=== PATIENT | male | born 1995 | race Hispanic/Latino ===

== ENCOUNTER 2018-09-14 22:45 | Emergency (ER) | payer MEDICAID, OTHER ==
[2018-09-14] MEDS ORDERED: BUPIVACAINE/PF 0.5% 30ML VIAL ONE (23:02)
[2018-09-14] MEDS ORDERED: ONDANSETRON HCL MDV 20ML 2 MG/ML VIAL ONE (23:10)
[2018-09-14] MEDS ORDERED: CEFAZOLIN SODIUM 1 GM VIAL ONE (23:11)
[2018-09-14 23:30] LABS: BASOPHILS % (AUTO) 0.5 % (0.0-5.0); EOSINOPHILS % (AUTO) 1.3 % (0.0-8.0); HEMATOCRIT 44.1 % (42-54); LYMPHOCYTES % (AUTO) 38.3 % (21.0-51.0); MEAN CORPUSCULAR HEMOGLOBIN 29.8 pg (27.0-33.0); MEAN CORPUSCULAR HGB CONC 33.9 g/dL (32.0-36.0); MEAN CORPUSCULAR VOLUME 87.8 fL (80-100); MONOCYTES % (AUTO) 6.2 % (3.0-13.0); NEUTROPHILS % (AUTO) 53.7 % (40.0-77.0); NUCLEATED RED BLOOD CELLS 0.1 % (0.0-0.19); PLATELET COUNT (AUTO) 293 K/uL (130-400); RED BLOOD CELL COUNT(AUTO) 5.02 MIL/uL (4.50-6.20); RED CELL DISTRIBUTION WIDTH 13.9 % (11.0-15.5); WHITE BLOOD COUNT (AUTO) 9.3 K/uL (4.8-10.8)
[2018-09-14 23:41] LABS: CREATININE 1.1 mg/dL (0.5-1.5); POTASSIUM 3.5 mmol/L (3.5-5.1)
[2018-09-14 23:42] LABS: INR 0.95 (0.85-1.15); PARTIAL THROMBOPLASTIN TIME 27.6 SEC (26.3-35.5)
[2018-09-15] MEDS ORDERED: TETANUS/DIPHTHERIA TOXOID [ADULT] 0.5 ML VIAL IM ONE (01:15)
== END 2018-09-15 01:45 | disposition home or self-care (01) ==
LOC: EDH 22:45
DX: S61.213A Laceration without foreign body of left middle finger without damage to nail, initial encounter (principal); W23.0XXA Caught, crushed, jammed, or pinched between moving objects, initial encounter; Y93.89 Activity, other specified; Y92.098 Other place in other non-institutional residence as the place of occurrence of the external cause; Y99.8 Other external cause status
CPT/HCPCS: 12042; 36415; 73140; 80048; 85025; 85610; 85730; 90471; 90714; 96365; 96366; 96375; 99284; J0690; J3490

== ENCOUNTER 2018-09-30 16:19 | Emergency (ER) | payer SELFPAY | END 2018-09-30 17:01 | disposition home or self-care (01) | LOC: EDH 16:19 | DX: S61.213D Laceration without foreign body of left middle finger without damage to nail, subsequent encounter (principal); Z72.0 Tobacco use; X58.XXXD Exposure to other specified factors, subsequent encounter | CPT/HCPCS: 99281 ==